=== PATIENT | female | born 1950 ===

== ENCOUNTER 2020-01-21 08:43 | Day surgery (SDC) | payer OTHER ==
[2020-01-21] VITALS (7 sets, daily range): BP systolic 101–146; BP diastolic 46–65
[~2020-01-21] VITALS: Ht 165.1 cm; Wt 121.0 kg
[2020-01-21] MEDS ORDERED: normal saline 1000ml 1,000 ML IV SCH (08:55)
[2020-01-21] MEDS ORDERED: Humalog (09:19)
[2020-01-21] MEDS ORDERED: FURO80TA3 IV (09:19)
[2020-01-21] MEDS ORDERED: SOLOSTAR SQ (09:19)
[2020-01-21] MEDS ORDERED: ATOR40TA PO (09:19)
[2020-01-21] MEDS ORDERED: AMLO10TA48 PO (09:19)
[2020-01-21] MEDS ORDERED: DOCU-148 PO (09:19)
[2020-01-21] MEDS ORDERED: APIX5TAB3 PO (09:19)
[2020-01-21] MEDS ORDERED: HYDR25SU32 RC (09:19)
[2020-01-21] MEDS ORDERED: ZAR5T PO (09:19)
[2020-01-21] MEDS ORDERED: BALS60OI (09:35)
[2020-01-21] MEDS ORDERED: ZITTEL BALM (09:35)
[2020-01-21] MEDS ORDERED: PANT-47 PO (09:35)
[2020-01-21] MEDS ORDERED: SENN-263 PO (09:35)
[2020-01-21] MEDS ORDERED: ALB0.5UD IH (09:37)
[2020-01-21] MEDS ORDERED: ATR0.5NEB IH (09:37)
[2020-01-21] MEDS ORDERED: PIPE2.258 IV (09:38)
[2020-01-21] MEDS ORDERED: [UNRECOGNIZED DRUG - OTHER] IV (09:40)
[2020-01-21] MEDS ORDERED: KCL IV (09:40)
[2020-01-21 10:25] LABS: HEMATOCRIT 24.1 % (35.0-45.0); HEMOGLOBIN 7.7 g/dl (12.0-16.0); MEAN CORPUSCULAR HGB CONC 31.9 g/dL (33.0-36.5); MEAN CORPUSCULAR VOLUME 68.7 FL (78-98); MEAN PLATELET VOLUME 8.7 FL (7.4-10.4); PLATELET COUNT 119 X10'3 (140-440); RED CELL DISTRIBUTION WIDTH 31.9 % (11.5-14.5)
[2020-01-21 10:38] LABS: ALANINE AMINOTRANSFERASE 14 U/L (12-78); ALBUMIN 2.5 G/DL (3.4-5.0); ALBUMIN/GLOBULIN RATIO 0.7 (1.1-1.5); ALKALINE PHOSPHATASE 82 IU/L (46-116); ANION GAP 8 (8-16); ASPARTATE AMINO TRANSFERASE 22 U/L (10-37); BILIRUBIN,TOTAL 1.2 MG/DL (0.1-1.0); BLOOD UREA NITROGEN 108 MG/DL (7-18); BUN/CREATININE RATIO 27.2 (6.6-38.0); CALCIUM 9.1 MG/DL (8.5-10.1); CHLORIDE 100 MMOL/L (99-107); CREATININE 3.97 MG/DL (0.40-0.90); GLUCOSE 167 MG/DL (70-104); POTASSIUM 3.6 MMOL/L (3.5-5.1); SODIUM 143 MMOL/L (135-145); TOTAL CARBON DIOXIDE 34.8 MMOL/L (24-32); eGFR 11 ML/MIN
[2020-01-21] MEDS ORDERED: heparin 1,000unit/ml 10ml vial 10 ML ONE (10:47)
[2020-01-21] MEDS ORDERED: LIDOcaine 1%/PF 5ML 10 MG/ML VIAL ONE (10:48)
[2020-01-21] MEDS ORDERED: midazolam 2 mg/2 ml injection ONE (10:55)
[2020-01-21] MEDS ORDERED: fentaNYL/PF 50MCG/1 ML 2ML syringe ONE (10:55)
== END 2020-01-21 13:30 | disposition home or self-care (01) ==
LOC: SSTAY O 08:43
PROVIDERS: ATTEND Radiology Diagnostic Radiology
DX: E11.22 Type 2 diabetes mellitus with diabetic chronic kidney disease (principal); I13.2 Hypertensive heart and chronic kidney disease with heart failure and with stage 5 chronic kidney disease, or end stage renal disease; N18.6 End stage renal disease; I50.9 Heart failure, unspecified; I48.91 Unspecified atrial fibrillation; J44.9 Chronic obstructive pulmonary disease, unspecified; Z98.51 Tubal ligation status; Z98.890 Other specified postprocedural states; Z98.49 Cataract extraction status, unspecified eye; F17.210 Nicotine dependence, cigarettes, uncomplicated; R79.89 Other specified abnormal findings of blood chemistry
CPT/HCPCS: 36415; 36558; 76937; 77001; 80053; 82948; 85027; C1750; C1769; C1894; J1644; J2250; J3010; A9270